=== PATIENT | female | born 1970 | race Asian ===

== ENCOUNTER → 2018-06-13 | Outpatient (CLI) | payer BC ==
[~2018-06-13] MED LIST: ASPRIN; DOXYCYCLINE 10100 MG PO; MOTRIN 600600 MG/TAB PO; PRENATAL1 TA1 PO
== END ==
LOC: MC.RAD 14:12
DX: Z12.31 Encounter for screening mammogram for malignant neoplasm of breast (principal)

== ENCOUNTER 2019-03-29 10:37 | Emergency (ER) | payer BC ==
[~2019-03-29] VITALS: Ht 162.6 cm; Wt 49.5 kg
[2019-03-29] MEDS ORDERED: ASPIRIN 81M81 MG/TA2 PO (11:01)
[2019-03-29] MEDS ORDERED: PRIMLEV5 PO (11:02)
[2019-03-29] MEDS ORDERED: COLACE 100100 MG/CAP PO (11:03)
[2019-03-29] MEDS ORDERED: MIRALAX PA17 GM/Dose PO (11:04)
[2019-03-29] MEDS ORDERED: DULCOLAX S10 MG/SUPP RC (11:05)
[2019-03-29 11:21] LABS: BASO % 0.2 % (0.0-2.0); EOS # 0.1 (0.0-0.7); EOS % 0.7 % (0-4.0); GRAN # 8.8 (1.4-6.5); GRAN % 83.6 % (42.2-75.2); HEMOGLOBIN 11.9 g/dl (12.5-16.0); LYMPH # 0.9 (1.2-3.4); LYMPH % 8.5 % (20.0-51.0); MEAN CELL VOLUME 87 fl (80.0-100.0); MEAN CORPUSCULAR HEMOGLOBIN 30 pg (27.0-31.0); MEAN CORPUSCULAR HGB CONC 35 g/dl (33.0-37.0); MONO # 0.7 (0.1-0.6); MONO % 6.8 % (1.7-9.3); PLATELET COUNT 265 K/mm3 (130-400); RED BLOOD COUNT 3.97 M/mm3 (4.10-5.30); REDCELL DISTRIBUTION WIDTH-CV 11.8 % (11.5-14.5)
[2019-03-29 11:22] LABS: HEMATOCRIT 34.5 % (37.0-47.0)
[2019-03-29 11:35] LABS: ALBUMIN 3.7 gm/dL (3.5-5.0); BILIRUBIN,TOTAL 0.8 mg/dL (0.0-1.0); C-REACTIVE PROTEIN 4.7 mg/dL (0.0-0.9); CALCIUM 9.3 mg/dL (8.4-10.2); CREATININE, serum 0.32 (0.52-1.25); TOTAL PROTEIN 7.1 gm/dL (6.4-8.2)
[2019-03-29 12:32] LABS: COLLECTION METHOD CLEAN CATCH
[2019-03-29 12:49] LABS: BUDDING YEAST Present /hpf; MUCOUS Present /lpf; PH 7 (5-8); SQUAMOUS EPITHELIAL 0-2 /hpf; URINE APPEARANCE Cloudy; URINE BACTERIA Rare /hpf; URINE BILIRUBIN Negative (NEGATIVE); URINE BLOOD 2+ (NEGATIVE); URINE COLOR Yellow; URINE GLUCOSE Negative (NEGATIVE); URINE KETONE 1+ (NEGATIVE); URINE LEUKOCYTE ESTERASE 3+ (NEGATIVE); URINE NITRATE Positive (NEGATIVE); URINE PROTEIN(semi-quant) Negative (NEGATIVE); URINE UROBILINOGEN Negative (NEGATIVE)
[2019-03-29] MEDS ORDERED: CEFTIN500 MG PO (13:54)
[2019-03-29 14:28] VITALS: BP 107/68; PULSE 90; TEMP 97.6
[2019-03-31] MEDS ORDERED: MACROBID 1100 MG/CAP PO (18:46)
== END 2019-03-29 14:07 | disposition home or self-care (01) ==
LOC: COL.ER 10:37
PROVIDERS: Emergency Medicine
DX: N39.0 Urinary tract infection, site not specified (principal); K56.41 Fecal impaction; Z79.82 Long term (current) use of aspirin
CPT/HCPCS: J2405; J3010; J7120

== ENCOUNTER → 2019-06-18 | Outpatient (CLI) | payer BC ==
[~2019-06-18] MED LIST changes: +ASPIRIN 81M81 MG/TA2 PO; +CEFTIN500 MG PO; +COLACE 100100 MG/CAP PO; +DULCOLAX S10 MG/SUPP RC; +MACROBID 1100 MG/CAP PO; +MIRALAX PA17 GM/Dose PO; +PRIMLEV5 PO
== END ==
LOC: MC.RAD 13:41
DX: Z12.31 Encounter for screening mammogram for malignant neoplasm of breast (principal); R22.31 Localized swelling, mass and lump, right upper limb
CPT/HCPCS: G0279

== ENCOUNTER 2019-06-30 08:33 | Day surgery (SDC) | payer BC ==
[~2019-06-30] VITALS: Ht 152.4 cm; Wt 47.0 kg
[2019-06-30] MEDS ORDERED: NATURAL MAGNES200 MG PO (08:58)
[2019-06-30] MEDS ORDERED: FOLIC ACID 11 MG/TA1 PO (08:58)
[2019-06-30 09:38] VITALS: BP 117/80; PULSE 88; TEMP 97.8
[2019-06-30 11:20] VITALS: BP 132/76; PULSE 86; TEMP 98.8
--- NOTE | 2019-06-30 11:20 | NUR ---
TO BAY 5 PER CART FROM ENDOSCOPY. DROWSY AND ORIENTED X3, FEW WORDS TO UPON ENTERING RM. AMBULATED WITH ASSIST TO RECLINER. SLEEPING QUIETLY
[2019-06-30 11:35] VITALS: BP 125/84; PULSE 104
--- NOTE | 2019-06-30 11:35 | NUR ---
MORE AWAKE AND TALKING TO DR DECKER INTO TALK TO PATIENT AND . RECEIVED WATER.
[2019-06-30 11:50] VITALS: BP 125/80; PULSE 105
--- NOTE | 2019-06-30 11:50 | NUR ---
DRANK CUP OF WATER AND EATING ICE CHIPS. RECEIVED APPLE SAUCE.
--- NOTE | 2019-06-30 12:00 | NUR ---
ATE 100% AND TOLERATED WELL RECEIVED DISCHARGE INSTRUCTIONS WITH AND VERBALIZED UNDERSTANDING. DISCONTINUED IV AND INT- CATHETER INTACT,.
--- NOTE | 2019-06-30 12:10 | NUR ---
DISCHARGED PER WC BY NURSING STAFF TO PRIVATE CAR IN CARE OF -SABRI.
== END 2019-06-30 12:18 | disposition home or self-care (01) ==
LOC: SDCO 08:33
DX: K62.89 Other specified diseases of anus and rectum (principal); K21.9 Gastro-esophageal reflux disease without esophagitis; R11.0 Nausea; R19.7 Diarrhea, unspecified; Z79.82 Long term (current) use of aspirin
CPT/HCPCS: J2250; J3010; J7030

== ENCOUNTER → 2020-06-21 | Outpatient (CLI) | payer BC ==
[~2020-06-21] MED LIST changes: +FOLIC ACID 11 MG/TA1 PO; +NATURAL MAGNES200 MG PO
== END ==
LOC: MC.RAD 09:48
DX: Z12.31 Encounter for screening mammogram for malignant neoplasm of breast (principal)

== ENCOUNTER → 2021-07-22 | Outpatient (CLI) | payer BC | LOC: MC.RAD 11:30 | DX: Z12.31 Encounter for screening mammogram for malignant neoplasm of breast (principal) ==